=== PATIENT | male | born 1985 | race Caucasian/White ===

== ENCOUNTER 2020-10-03 22:31 | Emergency (ER) | payer OTHER ==
[~2020-10-03] VITALS: Ht 185.4 cm; Wt 67.6 kg
[2020-10-03 22:39] VITALS: BP 145/82
[2020-10-03] MEDS ORDERED: NAPROSYN500 M1 PO (22:43)
[2020-10-03] MEDS ORDERED: MURO-128 5% OPH15 M1 OPHTHALMIC (22:43)
--- NOTE | 2020-10-04 09:20 | EKG ---
[place] [address] ELECTROCARDIOGRAM REPORT Name: OSKAR LEE Room: [facility]#: [id number] Admission: 10/03/20 Attend Phys: Discharge: 10/04/20 Date of : 85 Date of Service: 10/03/202247 Report #: [id number] THIS REPORT FOR: //name// [facility] ED Test Date: 2020-10-03 Test Time: 22:48:32 Pat Name: OSKAR LEE Department: Room: Gender: Grant Coordinator: [place] : 1985 Requested By: Jessica Kay Order Number: [id number] MD: Elvis Jiménez Measurements Intervals [place] Rate: 94 P: 88 OR: 120 QRS: 88 QRSD: 96 T: 74 QT: 332 QTc: 416 Interpretive Statements Sinus rhythm ST elev, probable normal early repol pattern No previous ECG available for comparison Electronically Signed On 10-04-2020 9:20:03 CDT by Elvis Jiménez [email or web address] <ELECTRONICALLY SIGNED> By: Elvis Jiménez MD, [facility] 10/04/20919 [id number] [id number] Elvis Jiménez MD, [facility] /EPI
== END 2020-10-04 00:21 | disposition left against medical advice (07) ==
LOC: M.ERS 22:31
DX: M79.605 Pain in left leg (principal); Z79.899 Other long term (current) drug therapy; Z88.1 Allergy status to other antibiotic agents; Z88.6 Allergy status to analgesic agent; Z53.21 Procedure and treatment not carried out due to patient leaving prior to being seen by health care provider